=== PATIENT | male | born 1965 | race Hispanic/Latino ===

== ENCOUNTER 2018-02-15 11:19 | Emergency (ER) | payer BC ==
[2018-02-15 11:26] VITALS: BMI 31.1
[2018-02-15 11:30] VITALS: RESP 16; O2SAT 97
[2018-02-15] MEDS ORDERED: Sodium Chloride 0.9% 1,000 ML IV STA (11:58)
--- NOTE | 2018-02-15 12:10 | ED PDOC ---
HPI: Male Pain Time Seen by Provider: 02/15/18 11:53 Chief Complaint (Nursing): Male Genitourinary Chief Complaint (Provider): Male Genitourinary History Per: Patient History/Exam Limitations: no limitations Onset/Duration Of Symptoms: Days (x1) Current Symptoms Are (Timing): Still Present Quality Of Discomfort: Sharp Associated Symptoms: Urinary Symptoms Additional Complaint(s): 52 year old male with no significant past medical history presents to the ED complaing of sharp, severe left flank pain that started overnight. Patient reports he drank cranberry juice and vinegar with some pain relief, but his urine is grossly bloody. He states he had similar flank pain, associated dark urine, but on the right side a month ago that self-resolved. Patient denies fever, vomiting, diarrhea, or any other medical problems. PMD: none provided. Past Medical History Reviewed: Historical Data, Nursing Documentation, Vital Signs Vital Signs: Last Vital Signs Temp 98.3 F 02/15/18 11:26 Pulse 91 H 02/15/18 11:26 Resp 16 02/15/18 11:26 BP 164/97 H 02/15/18 11:26 Pulse Ox 97 02/15/18 11:26 - Medical History PMH: Hyperthyroidism (not on med) - Surgical History Surgical History: Cholecystectomy - Family History Family History: States: Unknown Family Hx - Social History Current smoker - smoking cessation education provided: No Ex-Smoker (has not smoked in the last 12 months): No Alcohol: < 2 Drinks/Day (of wine) Drugs: Denies - Home Medications Home Medications: Ambulatory Orders Medication Instructions Recorded Ciprofloxacin [Cipro] 500 mg PO BID #14 tab 02/15/18 Naproxen [Naprosyn] 500 mg PO BID PRN #14 tablet 02/15/18 Tamsulosin [Flomax] 0.4 mg PO DAILY #3 cap 02/15/18 oxyCODONE/Acetaminophen [Percocet 1 ea PO Q6 PRN #6 tab 02/15/18 5/325 mg Tab] - Allergies Allergies/Adverse Reactions: Allergies Allergy/AdvReac Type Severity Reaction Status Date / Time No Known Allergies Allergy Verified 02/15/18 11:47 Review of Systems ROS Statement: Except As Marked, All Systems Reviewed And Found Negative Genitourinary Male: Positive for: Hematuria, Other (left flank pain) Physical Exam - Reviewed Nursing Documentation Reviewed: Yes Vital Signs Reviewed: Yes - Physical Exam Appears: Positive for: Non-toxic, No Acute Distress Head Exam: Positive for: ATRAUMATIC, NORMOCEPHALIC Skin: Positive for: Normal Color, Warm, Dry Eye Exam: Positive for: EOMI, Normal appearance, PERRL Neck: Positive for: Normal, Painless ROM Cardiovascular/Chest: Positive for: Regular Rate, Rhythm. Negative for: Murmur Respiratory: Positive for: Normal Breath Sounds. Negative for: Respiratory Distress Gastrointestinal/Abdominal: Positive for: Normal Exam, Soft. Negative for: Tenderness Back: Positive for: L CVA Tenderness (minimal), Other (minimal tederness ) Extremity: Positive for: Normal ROM (upper and lower extremities) Neurologic/Psych: Positive for: Alert, Oriented (x3). Negative for: Motor/ Sensory Deficits - Laboratory Results Result Diagrams: 02/15/18 12:38 02/15/18 12:38 - ECG O2 Sat by Pulse Oximetry: 97 (RA) Pulse Ox Interpretation: Normal Medical Decision Making Medical Decision Making: Time: 11:58 Rule out renal colic, pyelonephritis, or other Initial Plan: --CT abd & pelvis --CMP --Urine dip --CBC with differentials --NS --Toradol --Urine Culture --Urinalysis labs reviewed and clinically unremarkable other than UDip +blood Accession No. 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 TECHNIQUE: Technique. Contrast dose: None Radiation dose: Total exam DLP = 983 mGy-cm. This CT exam was performed using one or more of the following dose reduction techniques: Automated exposure control, adjustment of the mA and/or kV according to patient size, and/or use of iterative reconstruction technique. FINDINGS: LOWER THORAX: A lingular nonspecific heterogeneous slightly nodular 7 mm opacity is present this could be inflammatory. As neoplastic etiologies not excluded, consider CT chest follow-up imaging. A full CT chest study without IV contrast may be helpful prior to any short-term six-month follow-up imaging LIVER: Unremarkable. No gross lesion or ductal dilatation. GALLBLADDER AND BILE DUCTS: Cholecystectomy PANCREAS: Unremarkable. No gross lesion or ductal dilatation. SPLEEN: Unremarkable. ADRENALS: Unremarkable. No mass. KIDNEYS AND URETERS: In the lower pole the right kidney region the collecting system, a 6-7 mm nonobstructing right renal calculus is present. Right kidney otherwise appears unremarkable. This right renal calculus is visualized on the KUB at the approximate L2 level No left renal calculus seen. Left kidney is asymmetrically slightly swollen with left perinephric inflammatory stranding, left hydronephrosis and left hydroureter down to an obstructing left ureteral calculus approximately 6 mm on coronal series 601, image 69 This left calculus is at the approximate inferior left SI joint level. VASCULATURE: Unremarkable. No aortic aneurysm. BOWEL: Unremarkable. No obstruction. No gross mural thickening. APPENDIX: Unremarkable. Normal appendix. PERITONEUM: Unremarkable. No free fluid. No free air. LYMPH NODES: Unremarkable. No enlarged lymph nodes. BLADDER: Unremarkable. REPRODUCTIVE: Prostatic calcification BONES: No acute fracture. OTHER FINDINGS: None. IMPRESSION: Distal left ureteral calculus approximately 6 mm resulting in acute obstructive left hydro ureteral nephrosis. Left perinephric stranding Nonobstructing right renal calculus Cholecystectomy Initiate flomax and cipro, pain meds, IVF 330p re-eval much improved currently denies pain. DC w Rx for flomax, cipro and pain meds followup urology indications for return to ER discussed. Scribe Attestation: Documented by Cherelle Chin, acting as a scribe for Sunil Sauer III, DO Provider Scribe Attestation: All medical record entries made by the Scribe were at my direction and personally dictated by me. I have reviewed the chart and agree that the record accurately reflects my personal performance of the history, physical exam, medical decision making, and the department course for this patient. I have also personally directed, reviewed, and agree with the discharge instructions and disposition. Disposition - Clinical Impression Clinical Impression: Kidney stones - Patient ED Disposition Is Patient to be Admitted: No Counseled Patient/Family Regarding: Studies Performed, Diagnosis, Need For Followup - Disposition Referrals: Bubba Pate MD [Medical Doctor] - Disposition: Routine/Home Disposition Time: 15:30 Condition: STABLE Additional Instructions: Drink plenty of fluids. See urologist or return to ER for persistent or worsening symptoms, fever, weakness or any concern. Take all medications as directed. Prescriptions: Ciprofloxacin [Cipro] 500 mg PO BID #14 tab Naproxen [Naprosyn] 500 mg PO BID PRN #14 tablet PRN Reason: Pain, Moderate (4-7) oxyCODONE/Acetaminophen [Percocet 5/325 mg Tab] 1 ea PO Q6 PRN #6 tab PRN Reason: Pain, Severe (8-10) Tamsulosin [Flomax] 0.4 mg PO DAILY #3 cap Instructions: Kidney Stones in Adults, Electrohydraulic Lithotripsy, Laser Lithotripsy for Kidney Stones (DC) Forms: [email or web address] (Polish)
[2018-02-15 12:54] LABS: BASO % 0.4 % (0.0-2.0); EOS # 0.1 K/uL (0.0-0.7); EOS % 0.8 % (0.0-4.0); HEMOGLOBIN 15.4 g/dL (12.0-18.0); LYMPH # 1.3 K/uL (1.0-4.3); MEAN CELL VOLUME 83.4 fl (80.0-94.0); MEAN CORPUSCULAR HEMOGLOBIN 28.9 pg (27.0-31.0); MEAN CORPUSCULAR HGB CONC 34.7 g/dL (33.0-37.0); MEAN PLATELET VOLUME 8.7 fl (7.2-11.7); MONO # 0.9 K/uL (0.0-0.8); NEUT # 7.1 K/uL (1.8-7.0); NEUT % 74.8 % (50.0-75.0); NRBC % 0.2 % (0.0-0.0); RBC 5.32 Mil/uL (4.40-5.90); RED CELL DISTRIBUTION WIDTH 13.4 % (11.5-14.5); WHITE BLOOD COUNT 9.5 K/uL (4.8-10.8)
[2018-02-15 13:02] LABS: ALB/GLOB RATIO 1.2 (1.0-2.1); ALBUMIN 4.6 g/dL (3.5-5.0); ALT/SGPT 48 U/L (21-72); AST/SGOT 36 U/L (17-59); BLOOD UREA NITROGEN 16 mg/dl (9-20); CALCIUM 9.5 mg/dL (8.4-10.2); GFR AFRICAN-AMERICAN > 60; GFR NON-AFRICAN AMERICAN > 60
--- NOTE | 2018-02-15 13:12 | CT ---
PROCEDURE: CT Abdomen and Pelvis without intravenous contrast HISTORY: L flank pain hematuria, hx cholecystectomy COMPARISON: None. TECHNIQUE: Technique. Contrast dose: None Radiation dose: Total exam DLP = 983 mGy-cm. This CT exam was performed using one or more of the following dose reduction techniques: Automated exposure control, adjustment of the mA and/or kV according to patient size, and/or use of iterative reconstruction technique. FINDINGS: LOWER THORAX: A lingular nonspecific heterogeneous slightly nodular 7 mm opacity is present this could be inflammatory. As neoplastic etiologies not excluded, consider CT chest follow-up imaging. A full CT chest study without IV contrast may be helpful prior to any short-term six-month follow-up imaging LIVER: Unremarkable. No gross lesion or ductal dilatation. GALLBLADDER AND BILE DUCTS: Cholecystectomy PANCREAS: Unremarkable. No gross lesion or ductal dilatation. SPLEEN: Unremarkable. ADRENALS: Unremarkable. No mass. KIDNEYS AND URETERS: In the lower pole the right kidney region the collecting system, a 6-7 mm nonobstructing right renal calculus is present. Right kidney otherwise appears unremarkable. This right renal calculus is visualized on the KUB at the approximate L2 level No left renal calculus seen. Left kidney is asymmetrically slightly swollen with left perinephric inflammatory stranding, left hydronephrosis and left hydroureter down to an obstructing left ureteral calculus approximately 6 mm on coronal series 601, image 69 This left calculus is at the approximate inferior left SI joint level. VASCULATURE: Unremarkable. No aortic aneurysm. BOWEL: Unremarkable. No obstruction. No gross mural thickening. APPENDIX: Unremarkable. Normal appendix. PERITONEUM: Unremarkable. No free fluid. No free air. LYMPH NODES: Unremarkable. No enlarged lymph nodes. BLADDER: Unremarkable. REPRODUCTIVE: Prostatic calcification BONES: No acute fracture. OTHER FINDINGS: None. IMPRESSION: Distal left ureteral calculus approximately 6 mm resulting in acute obstructive left hydro ureteral nephrosis. Left perinephric stranding Nonobstructing right renal calculus Cholecystectomy
[2018-02-15 16:25] VITALS: BP 152/81; PULSE 88; TEMP 98.1
== END 2018-02-15 16:25 | disposition home or self-care (01) ==
LOC: H.ER 11:19
DX: N20.1 Calculus of ureter (principal); E05.90 Thyrotoxicosis, unspecified without thyrotoxic crisis or storm; Z90.49 Acquired absence of other specified parts of digestive tract
CPT/HCPCS: 74176; 80053; 85025; 96374; 99283; J1885; J7030